=== PATIENT | female | born 1995 | race Caucasian/White ===

== ENCOUNTER 2021-10-19 18:56 | Emergency (ER) | payer BC, MEDICAID ==
[~2021-10-19] VITALS: Ht 167.6 cm; Wt 86.4 kg
[2021-10-19 19:24] VITALS: TEMP 98.1
[2021-10-19 19:38] LABS: COLLECTION METHOD CLEAN CATCH
[2021-10-19 19:55] LABS: PH 7 (5-8); URINE APPEARANCE Clear (CLEAR/HAZY); URINE BACTERIA None Seen /hpf (NONE SEEN); URINE BILIRUBIN Negative (NEGATIVE); URINE BLOOD Negative (NEGATIVE); URINE COLOR Yellow (YELLOW); URINE GLUCOSE Negative (NEGATIVE); URINE KETONE Negative (NEGATIVE); URINE LEUKOCYTE ESTERASE Negative (NEGATIVE); URINE NITRATE Negative (NEGATIVE); URINE PROTEIN(semi-quant) Negative (NEGATIVE); URINE RBC 0-2 /hpf (0-2); URINE UROBILINOGEN Negative (NEGATIVE)
[2021-10-19 19:57] LABS: BASO # 0.1 K/mm3 (0.0-0.2); BASO % 0.6 % (0.0-2.0); EOS # 0.1 K/mm3 (0.0-0.7); EOS % 0.7 % (0.0-4.0); GRAN # 6.2 K/mm3 (1.4-6.5); GRAN % 64.5 % (42.2-75.2); HEMATOCRIT 40.4 % (37.0-47.0); HEMOGLOBIN 13.6 g/dl (12.5-16.0); LYMPH # 2.5 K/mm3 (1.2-3.4); LYMPH % 25.6 % (20.0-51.0); MEAN CELL VOLUME 88 fl (80.0-100.0); MEAN CORPUSCULAR HEMOGLOBIN 30 pg (27-31); MEAN CORPUSCULAR HGB CONC 34 g/dl (33.0-37.0); MEAN PLATELET VOLUME 10.4 fl (7.4-10.4); MONO # 0.8 K/mm3 (0.1-0.6); MONO % 8.4 % (1.7-9.3); PLATELET COUNT 268 K/mm3 (130-400); RED BLOOD COUNT 4.59 M/mm3 (4.10-5.30); REDCELL DISTRIBUTION WIDTH-CV 13.3 % (11.5-14.5)
[2021-10-19 20:22] LABS: ALBUMIN 4.7 gm/dL (3.5-5.0); BILIRUBIN,TOTAL 0.3 mg/dL (0.2-1.2); C-REACTIVE PROTEIN 0.18 mg/dL (0.00-0.50); CALCIUM 9.8 mg/dL (8.4-10.2); CREATININE, serum 0.61 mg/dL (0.57-1.11); POTASSIUM 3.7 mmol/L (3.5-4.5); TOTAL PROTEIN 7.9 gm/dL (6.2-8.1)
[2021-10-19 20:32] VITALS: BP 133/81; PULSE 68
== END 2021-10-19 20:32 | disposition home or self-care (01) ==
LOC: COL.ER 18:56
PROVIDERS: Emergency Medicine
DX: R05.9 Cough, unspecified (principal)
CPT/HCPCS: J1885; J2405; J7030; Q9967

== ENCOUNTER → 2021-11-03 | Outpatient (CLI) | payer BC, MEDICAID | LOC: COL.LAB 11:34 | DX: K52.9 Noninfective gastroenteritis and colitis, unspecified (principal) ==

== ENCOUNTER 2022-03-25 14:24 | Emergency (ER) | payer BC, MEDICAID ==
[~2022-03-25] VITALS: Ht 167.6 cm; Wt 86.4 kg
[2022-03-25 14:37] VITALS: TEMP 98.6
[2022-03-25 15:24] LABS: COLLECTION METHOD CLEAN CATCH
[2022-03-25 15:31] LABS: BASO % 0.4 % (0.0-2.0); EOS # 0.1 K/mm3 (0.0-0.7); EOS % 1.3 % (0.0-4.0); GRAN # 4.2 K/mm3 (1.4-6.5); GRAN % 59.1 % (42.2-75.2); HEMATOCRIT 41.7 % (37.0-47.0); LYMPH # 2.3 K/mm3 (1.2-3.4); LYMPH % 32.2 % (20.0-51.0); MEAN CELL VOLUME 88 fl (80.0-100.0); MEAN CORPUSCULAR HEMOGLOBIN 30 pg (27-31); MEAN CORPUSCULAR HGB CONC 34 g/dl (33.0-37.0); MEAN PLATELET VOLUME 10.1 fl (7.4-10.4); MONO # 0.5 K/mm3 (0.1-0.6); MONO % 6.9 % (1.7-9.3); PLATELET COUNT 310 K/mm3 (130-400); RED BLOOD COUNT 4.72 M/mm3 (4.10-5.30); REDCELL DISTRIBUTION WIDTH-CV 12.1 % (11.5-14.5)
[2022-03-25 15:45] LABS: ALBUMIN 4.6 gm/dL (3.5-5.0); BILIRUBIN,TOTAL 0.5 mg/dL (0.2-1.2); C-REACTIVE PROTEIN 0.24 mg/dL (0.00-0.50); CREATININE, serum 0.63 mg/dL (0.57-1.11); POTASSIUM 3.7 mmol/L (3.5-4.5); TOTAL PROTEIN 8.1 gm/dL (6.2-8.1)
[2022-03-25 15:53] LABS: URINE APPEARANCE Clear (CLEAR/HAZY); URINE COLOR Yellow (YELLOW); URINE GLUCOSE Negative (NEGATIVE); URINE NITRATE Negative (NEGATIVE); URINE PROTEIN(semi-quant) Negative (NEGATIVE); URINE UROBILINOGEN 0.2 E.U/dL (0.2-1.0)
[2022-03-25 16:05] LABS: MUCOUS Present (NOT PRESENT); URINE BACTERIA Rare /hpf (NONE SEEN); URINE RBC 0-2 /hpf (0-2)
[2022-03-25 17:04] LABS: URINE BLOOD TRACE-INTACT (NEGATIVE)
[2022-03-25 17:08] LABS: URINE KETONE 1+ (NEGATIVE)
[2022-03-25 18:05] VITALS: BP 97/70; PULSE 70
== END 2022-03-25 18:08 | disposition home or self-care (01) ==
LOC: COL.ER 14:24
PROVIDERS: Nurse Practitioner
DX: R10.31 Right lower quadrant pain (principal); Z32.02 Encounter for pregnancy test, result negative
CPT/HCPCS: J2270; J2405; J7030; Q9967

== ENCOUNTER 2024-05-02 08:53 | Emergency (ER) | payer MEDICAID ==
[~2024-05-02] VITALS: Ht 170.2 cm; Wt 75.0 kg
[~2024-05-02 08:53] MED LIST: NORCO 325 MG-51 TAB PO; ZOFRAN ODT4 MG PO
[2024-05-02 09:00] VITALS: BP 119/80; TEMP 97.7
[2024-05-02] MEDS ORDERED: VYVANSE60 MG PO (09:03)
[2024-05-02] MEDS ORDERED: IMITREX100 MG PO (09:03)
[2024-05-02] MEDS ORDERED: Ibuprofen 600 MG TAB PO ONE (09:30)
[2024-05-02 09:58] VITALS: PULSE 91
== END 2024-05-02 09:59 | disposition home or self-care (01) ==
LOC: COL.ER 08:53
DX: S83.92XA Sprain of unspecified site of left knee, initial encounter (principal); X58.XXXA Exposure to other specified factors, initial encounter